=== PATIENT | male | born 1970 | race Native Hawaiian/Other Pacific Islander ===

== ENCOUNTER 2016-11-05 18:01 | Emergency (ER) | payer OTHER ==
[~2016-11-05] VITALS: Ht 172.7 cm; Wt 136.1 kg
[2016-11-05 19:03] LABS: PLATELET COUNT 273 K/uL (142-355)
[2016-11-05 19:11] LABS: POTASSIUM 3.6 mmol/L (3.6-5.2)
[2016-11-05] MEDS ORDERED: CITA20TA2 PO ×2 (20:28→20:33)
[2016-11-05 22:16] VITALS: BP 123/86; TEMP 98.7
== END 2016-11-05 22:17 | disposition home or self-care (01) ==
LOC: ED 18:01 → EDSEX 18:01 → ED 18:01
DX: R10.84 Generalized abdominal pain (principal); K80.20 Calculus of gallbladder without cholecystitis without obstruction
CPT/HCPCS: 36415; 80053; 82150; 83690; 85027; 99283

== ENCOUNTER 2016-12-29 08:46 | Emergency (ER) | payer OTHER ==
[~2016-12-29] VITALS: Ht 172.7 cm; Wt 128.4 kg
[~2016-12-29 08:46] MED LIST: CITA20TA2 PO
[2016-12-29 10:45] LABS: PLATELET COUNT 322 K/uL (142-355)
[2016-12-29 11:05] LABS: POTASSIUM 3.6 mmol/L (3.6-5.2)
[2016-12-29 11:43] VITALS: BP 116/68; TEMP 98
== END 2016-12-29 11:43 | disposition home or self-care (01) ==
LOC: EDSEX 08:46 → ED 08:46
PROVIDERS: Specialist
DX: M79.0 Rheumatism, unspecified (principal)
CPT/HCPCS: 36415; 80053; 84550; 85027; 99283

== ENCOUNTER 2018-10-16 17:41 | Outpatient (CLI) | payer OTHER | END 2018-10-16 17:43 | disposition short-term general hospital (02) | LOC: AMB 17:41 | DX: R10.9 Unspecified abdominal pain (principal); R07.89 Other chest pain; M79.605 Pain in left leg; M79.604 Pain in right leg | CPT/HCPCS: A0425; A0427 ==

== ENCOUNTER 2018-10-16 17:46 | Observation (INO) | payer OTHER ==
[~2018-10-16] VITALS: Ht 172.7 cm; Wt 130.2 kg
[2018-10-16 17:50] VITALS: BP 110/71; TEMP 97.5
[2018-10-16 18:48] LABS: PLATELET COUNT 268 K/uL (142-355)
[2018-10-16 18:55] LABS: POTASSIUM 3.3 mmol/L (3.6-5.2)
[2018-10-16 23:30] VITALS: BP 118/80; TEMP 97.2
[2018-10-17 00:55] VITALS: BP 119/75; TEMP 98.2; Ht 172.7 cm; Wt 130.2 kg
--- NOTE | 2018-10-17 01:10 | NUR ---
10/17/18 2353 PT TO ROOM 1110 DX RT UPPER QUADRANT PAIN AND NAUSEA.PT IS ORIENTED TO ROOM CALL LIGHT WITHIN REACH.PT SAID HE IS CRAMPING IN HIS LEGS RATES PAIN 8 ON SCALE 1- 1O REQUESTING SOMETHING FOR PAIN.TOLD PT I WILL CHECK WITH MD TO SEE IF HE CAN HAVE ANYTHING AT THIS TIME.CC
--- NOTE | 2018-10-17 02:36 | NUR ---
10/17/18 0235 AWAKE RESTING IN BED PT SAID HE IS FEELING BETTER WITH HIS LEGS HURTING.CC
[2018-10-17 04:21] VITALS: BP 121/72; TEMP 97.8
--- NOTE | 2018-10-17 05:30 | NUR ---
10/17/18 0525 LABS COLLECTED SENT TO LAB.CC
[2018-10-17 05:34] LABS: PLATELET COUNT 213 K/uL (142-355)
[2018-10-17 06:13] LABS: POTASSIUM 3.1 mmol/L (3.6-5.2)
[2018-10-17 08:00] VITALS: BP 114/66; TEMP 97.8
[2018-10-17 11:41] VITALS: BP 105/64; TEMP 97.6
--- NOTE | 2018-10-17 15:53 | NUR ---
PT C/O BLEEDING WHILE URINATING. JAVI VU NOTIFIED. VISULAIZED QUARTER SIZE AMOUNT OF BLOOD ON UNDERWEAR. BLOOD ORIGINATES FROM THE PENIS. JAVI VU STATES TO MONITER BLEEDING.
[2018-10-17 16:00] VITALS: BP 124/64; TEMP 97.9
[2018-10-17 20:04] VITALS: BP 116/69; TEMP 97.7
[2018-10-18] VITALS: BP 125/57; TEMP 98.5
[2018-10-18 04:21] VITALS: BP 110/71; TEMP 98.8
[2018-10-18 05:54] LABS: PLATELET COUNT 221 K/uL (142-355)
[2018-10-18 06:10] LABS: POTASSIUM 3.5 mmol/L (3.6-5.2)
[2018-10-18 08:17] VITALS: BP 118/66; BP 122/75; TEMP 97.6; TEMP 98.1
--- NOTE | 2018-10-18 10:30 | NUR ---
DISCHARGE INSTRUCTION GIVE AND PT VERBALIZED UNDERSTANDING. PT D/C VIA WC AT THIS TIME
== END 2018-10-18 10:30 | disposition home or self-care (01) ==
LOC: ED 17:46 → EDSEX 17:46 → MED/SURG 23:30
PROVIDERS: ADMIT Family Medicine
DX: K80.20 Calculus of gallbladder without cholecystitis without obstruction (principal); E87.6 Hypokalemia
CPT/HCPCS: 36415; 74022; 80053; 81000; 82150; 83690; 85027; 96360; 96366; 96372; 96374; 96375; 99220; 99284; G0378; J1650; J1885; J2405; Q9963

== ENCOUNTER 2018-11-23 16:41 | Emergency (ER) | payer OTHER ==
[~2018-11-23] VITALS: Ht 172.7 cm; Wt 130.2 kg
[2018-11-23 18:01] LABS: PLATELET COUNT 257 K/uL (142-355)
[2018-11-23 18:04] LABS: SODIUM 137 mmol/L (136-145)
[2018-11-23 20:26] VITALS: BP 101/75; TEMP 98.3
== END 2018-11-23 20:27 | disposition home or self-care (01) ==
LOC: ED 16:41
PROVIDERS: Family Medicine
DX: M94.0 Chondrocostal junction syndrome [Tietze] (principal)
CPT/HCPCS: 36415; 80053; 81000; 82550; 84484; 85027; 85379; 93005; 99283

== ENCOUNTER 2018-12-04 20:52 | Outpatient (CLI) | payer OTHER | END 2018-12-04 20:55 | disposition short-term general hospital (02) | LOC: AMB 20:52 | DX: M54.9 Dorsalgia, unspecified (principal) | CPT/HCPCS: A0425; A0429 ==

== ENCOUNTER 2018-12-04 21:02 | Emergency (ER) | payer OTHER ==
[~2018-12-04] VITALS: Ht 172.7 cm; Wt 127.9 kg
[2018-12-04 21:44] LABS: PLATELET COUNT 210 K/uL (142-355)
[2018-12-04 22:04] LABS: POTASSIUM 3.6 mmol/L (3.6-5.2)
[2018-12-05 00:38] VITALS: BP 121/82; TEMP 98.5
== END 2018-12-05 00:42 | disposition home or self-care (01) ==
LOC: ED 21:02
PROVIDERS: Emergency Medicine
DX: K80.20 Calculus of gallbladder without cholecystitis without obstruction (principal)
CPT/HCPCS: 36415; 80053; 81000; 82150; 83690; 85027; 96374; 99284; J1885; Q9963